=== PATIENT | male | born 1945 | race Asian ===

== ENCOUNTER 2019-05-09 07:14 | Day surgery (SDC) | payer OTHER ==
[~2019-05-09] VITALS: Ht 167.6 cm; Wt 65.9 kg
[~2019-05-09 07:14] MED LIST: SODIUM CHLORIDE 0.9% 1,000 ML IV ONE
[2019-05-09] MEDS ORDERED: ALBUTEROL SULFATE 2.5 MG/0.5 ML NEB SOLUTION NEB ONE (07:15)
[2019-05-09] MEDS ORDERED: LIDOCAINE 2% 5 ML JELLY TP ONE (07:15)
[2019-05-09] MEDS ORDERED: BENZOCAINE 20% 50 MCG/SPRAY 57 GM TP ONE (07:15)
[2019-05-09] MEDS ORDERED: LIDOCAINE 4% 50 ML SOLUTION TP ONE (07:15)
[2019-05-09] MEDS ORDERED: PRED10 PO (07:37)
[2019-05-09] MEDS ORDERED: ALBU8HFA IH (07:37)
[2019-05-09] MEDS ORDERED: ADV500 IH (07:37)
[2019-05-09] MEDS ORDERED: ASPI-1182 PO (07:37)
[2019-05-09] MEDS ORDERED: FentaNYL CITRATE-PF 100 MCG/2 ML VIAL ONE (07:37)
[2019-05-09] MEDS ORDERED: AMLO5TAB9 PO (07:37)
[2019-05-09] MEDS ORDERED: LORA10TA7 PO (07:37)
[2019-05-09] MEDS ORDERED: FLUT16H NASAL (07:37)
[2019-05-09] MEDS ORDERED: DOXY100C PO (07:37)
[2019-05-09] MEDS ORDERED: AZEL6DRO5 OU (07:37)
[2019-05-09] MEDS ORDERED: MONT10TA21 PO (07:37)
[2019-05-09] MEDS ORDERED: IBUP-2070 PO (07:37)
[2019-05-09] MEDS ORDERED: ATOR40TA28 PO (07:37)
[2019-05-09] MEDS ORDERED: ATEN50TA PO (07:37)
[2019-05-09] MEDS ORDERED: FENO48TA15 PO (07:37)
[2019-05-09] MEDS ORDERED: TAMS-1 PO (07:37)
[2019-05-09] MEDS ORDERED: DUTA.5 PO (07:37)
[2019-05-09] MEDS ORDERED: OMEP20 PO (07:37)
[2019-05-09] MEDS ORDERED: MIDAZOLAM HCL 2 MG/2 ML VIAL ONE (07:37)
[2019-05-09] MEDS ORDERED: MethylPREDNISolone SOD SUCC 125 MG/2 ML VIAL ONE (08:02)
[2019-05-09] MEDS ORDERED: MethylPREDNISolone SOD SUCC 125 MG/2 ML VIAL IVP ONE (08:45)
[2019-05-09] MEDS ORDERED: OXYGEN THERAPY IH SCH (20:00)
== END 2019-05-09 10:10 | disposition home or self-care (01) ==
LOC: SURGERY 07:14
PROVIDERS: ATTEND Internal Medicine Critical Care Medicine
DX: R05 Cough (principal); R91.1 Solitary pulmonary nodule; B37.0 Candidal stomatitis; J98.8 Other specified respiratory disorders; J38.4 Edema of larynx; I10 Essential (primary) hypertension; E78.00 Pure hypercholesterolemia, unspecified; J45.909 Unspecified asthma, uncomplicated; Z85.6 Personal history of leukemia; Z98.890 Other specified postprocedural states; Z79.899 Other long term (current) drug therapy
CPT/HCPCS: 31623; 31624; 71045; 87070; 87101; 87205; 87206; 87220; 88108; 88312; 93005; J2250; J2930; J3010; J7030

== ENCOUNTER 2022-05-24 06:22 | Day surgery (SDC) | payer OTHER ==
[~2022-05-24] VITALS: Ht 165.1 cm; Wt 56.8 kg
[~2022-05-24 06:22] MED LIST changes: +ADV500 IH; +ALBU8HFA IH; +AMLO-257 PO; +ASPI-1444 PO; +ATEN-72 PO; +ATOR40TA28 PO; +AZEL6DRO5 OU; +DOXY100C PO; +DUTA.5 PO; +FENO48TA12 PO; +FLUT16H NASAL; +IBUP-2070 PO; +LORA10TA7 PO; +MONT-35 PO; +OMEP20 PO; +PRED-729 PO; +TAMS-1 PO
[2022-05-24] MEDS ORDERED: LIDOCAINE 4% 50 ML SOLUTION TP ONE (06:23)
[2022-05-24] MEDS ORDERED: LIDOCAINE 2% 11 ML JELLY TP ONE (06:23)
[2022-05-24] MEDS ORDERED: BENZOCAINE 20% 50 MCG/SPRAY 57 GM TP ONE (06:23)
[2022-05-24] MEDS ORDERED: ALBUTEROL SULFATE 2.5 MG/0.5 ML NEB SOLUTION NEB ONE (06:23)
[2022-05-24] MEDS ORDERED: SODIUM CHLORIDE 0.9% 1,000 ML ONE (06:33)
[2022-05-24 07:02] LABS: COVID AG,FIA SOURCE NASAL SWAB
[2022-05-24 08:06] LABS: GLUCOMETER DEV NAME(LOC) SDS.; GLUCOSE,POINT OF CARE 143 MG/DL (70-110)
[2022-05-24] MEDS ORDERED: FentaNYL CITRATE PF 100 MCG/2 ML VIAL ONE (08:15)
[2022-05-24] MEDS ORDERED: MIDAZOLAM HCL 5 MG/ML VIAL ONE (08:16)
[2022-05-24] MEDS ORDERED: MethylPREDNISolone SOD SUCC 125 MG/2 ML VIAL IVP ONE (09:15)
[2022-05-24] MEDS ORDERED: ACET-3385 PO (09:18)
[2022-05-24] MEDS ORDERED: VITA-328 PO (09:18)
[2022-05-24] MEDS ORDERED: GABA-1181 PO (09:18)
[2022-05-24] MEDS ORDERED: SODI650T33 PO (09:18)
[2022-05-24] MEDS ORDERED: ESCI-8 PO (09:18)
[2022-05-24] MEDS ORDERED: NILO200C PO (09:18)
[2022-05-24] MEDS ORDERED: METF-1185 PO (09:18)
[2022-05-24] MEDS ORDERED: FLUT1BLS10 IH (09:18)
[2022-05-24] MEDS ORDERED: FINE10TA PO (09:18)
[2022-05-24] MEDS ORDERED: ALEN35TA41 PO (09:18)
[2022-05-24] MEDS ORDERED: DUTA1CPM4 PO (09:18)
[2022-05-24] MEDS ORDERED: DAPA10TA PO (09:18)
[2022-05-24] MEDS ORDERED: CHOL500013 PO (09:18)
[2022-05-24] MEDS ORDERED: FENO54TA7 PO (09:18)
[2022-05-24] MEDS ORDERED: MIRT-89 PO (09:18)
[2022-05-24] MEDS ORDERED: BACL10TA PO (09:18)
[2022-05-24] MEDS ORDERED: PANT-31 PO (09:18)
[2022-05-24] MEDS ORDERED: GLIP10TA10 PO (09:18)
[2022-05-24] MEDS ORDERED: LISI-893 PO (09:18)
[2022-05-24] MEDS ORDERED: PROM6.2514 PO (09:18)
[2022-05-24] MEDS ORDERED: MEGE40TA33 PO (09:18)
[2022-05-24] MEDS ORDERED: MethylPREDNISolone SOD SUCC 125 MG/2 ML VIAL ONE (09:38)
[2022-05-24] MEDS ORDERED: PROMETH/PHENYLEPHRINE/CODEINE 5 ML ORAL.SYG PO ONE (10:00)
[2022-05-24] MEDS ORDERED: PROM118S5 PO (11:27)
[2022-05-24] MEDS ORDERED: SUCR1TAB PO (11:27)
[2022-05-24] MEDS ORDERED: FENO48TA10 PO (11:35)
[2022-05-24] MEDS ORDERED: AMLO10TA55 PO (11:35)
[2022-05-24] MEDS ORDERED: KETO10DR3 OU (11:35)
[2022-05-24] MEDS ORDERED: PROP10DR4 OU (11:35)
[2022-05-24] MEDS ORDERED: CHOL100062 PO (11:35)
[2022-05-24] MEDS ORDERED: ATOR20TA65 PO (11:35)
[2022-05-24] MEDS ORDERED: P-EP-31 PO (11:39)
[2022-05-24] MEDS ORDERED: TAMS-13 PO (11:39)
[2022-05-24] MEDS ORDERED: DUTA0.5C37 PO (11:39)
[2022-05-24] MEDS ORDERED: OXYGEN THERAPY IH SCH (20:00)
== END 2022-05-24 12:30 | disposition home or self-care (01) ==
LOC: SURGERY 06:22
PROVIDERS: ATTEND Internal Medicine Critical Care Medicine
DX: J38.4 Edema of larynx (principal); B37.0 Candidal stomatitis; I10 Essential (primary) hypertension; Z79.899 Other long term (current) drug therapy; Z98.890 Other specified postprocedural states; Z98.49 Cataract extraction status, unspecified eye; Z85.6 Personal history of leukemia; Z20.822 Contact with and (suspected) exposure to COVID-19
CPT/HCPCS: 31623; 82962; 87101; 87220; 87070; 88108; 88305; 88312; 31624; 94640; 71045; 87015; 87426; 87206; J3010; J2930; J2370; J2250; Q9967; J7030; C9803; J7613; Z7610